=== PATIENT | male | born 1945 | race Caucasian/White ===

== ENCOUNTER 2022-10-10 09:26 | Day surgery (SDC) | payer MEDICARE, OTHER ==
[~2022-10-10] VITALS: Ht 180.3 cm; Wt 81.8 kg
[2022-10-10 09:53] VITALS: BP 174/71
[2022-10-10] MEDS ORDERED: ASPI81TA52 PO (09:54)
[2022-10-10] MEDS ORDERED: ATEN25TA PO (09:54)
[2022-10-10] MEDS ORDERED: ROSU10TA28 PO (09:54)
[2022-10-10] MEDS ORDERED: DILT-35 PO (09:54)
[2022-10-10] MEDS ORDERED: LIDOcaine 1%/PF 5ML 10 MG/ML VIAL SQ ONE (11:40)
--- NOTE | 2022-10-10 13:00 | NUR ---
Dr. Mejia and Angio RN at bedside performing Thyroid biopsy.
[2022-10-10] MEDS ORDERED: LIDOcaine 1%/PF 5ML 10 MG/ML VIAL IJ ONE (15:10)
== END 2022-10-10 13:45 | disposition home or self-care (01) ==
LOC: SSTAY O 09:26
DX: E04.1 Nontoxic single thyroid nodule (principal); I10 Essential (primary) hypertension; E78.5 Hyperlipidemia, unspecified; Z79.899 Other long term (current) drug therapy; Z79.82 Long term (current) use of aspirin
CPT/HCPCS: 10005

== ENCOUNTER 2025-01-16 07:52 | Outpatient (CLI) | payer MEDICARE, OTHER ==
[~2025-01-16 07:52] MED LIST: ASPI81TA52 PO; ATEN25TA PO; DILT-35 PO; ROSU10TA72 PO
[2025-01-16] MEDS ORDERED: iohexol 300mg/ml 100ml inj. ONE (07:54)
[2025-01-16 09:30] LABS: MEAN PLATELET VOLUME 9.1 FL (7.4-10.4); RED CELL DISTRIBUTION WIDTH 14.1 % (11.5-14.5)
[2025-01-16 09:58] LABS: CHOL/HDL RATIO 2.1 (0.00-4.99); CREATININE 0.97 MG/DL (0.60-1.10); LDL CHOLESTEROL 38 MG/DL (50-100); TOTAL CARBON DIOXIDE 31.0 MMOL/L (24-32); eGFR 75 ML/MIN
--- NOTE | 2025-01-16 11:09 | RADIOLOGY REPORT ---
CLINICAL HISTORY: UNSPECIFIED ABDOMINAL PAIN TECHNIQUE: CT of the abdomen and pelvis was performed with IV contrast. 100ML of omnipaque 350 was ad ministered intravenously. This exam was performed according to our departmental dose optimization pro gram. Up-to-date CT equipment and radiation dose reduction techniques are utilized as appropriate. CTDI 10.9 DLP 529.1 COMPARISON: None FINDINGS: Abdomen/Pelvis: The spleen, pancreas, adrenal glands, and bladder are unremarkable. The prostate gland is mildly enla rged in size, measuring 4.8 cm diameter. There are bilateral renal and right hepatic dome cysts. The gallbladder is absent. The abdominal aorta is normal in course and caliber. There are moderate aortic atherosclerotic change s. There is no free intraperitoneal air or fluid. There is no enlarged abdominal or pelvic lymph node. There is no bowel wall thickening or dilatation. The appendix is normal. Other: The imaged lower thorax is unremarkable. No acute osseous abnormality is evident. IMPRESSION: No acute CT abnormality in the abdomen or pelvis. Mild prostatomegaly. Coast cystectomy.
[2025-01-17 11:17] LABS: TESTOSTERONE, SERUM 451 ng/dL (264-916)
[2025-01-20 11:17] LABS: TESTOSTERONE, FREE, DIRECT 6.7 pg/mL (6.6-18.1)
== END 2025-01-16 23:59 | disposition home or self-care (01) ==
LOC: RAD 07:52
PROVIDERS: ATTEND Nurse Practitioner
DX: N40.0 Benign prostatic hyperplasia without lower urinary tract symptoms (principal); N28.1 Cyst of kidney, acquired; K76.89 Other specified diseases of liver; I70.0 Atherosclerosis of aorta; R10.9 Unspecified abdominal pain; I10 Essential (primary) hypertension; E78.2 Mixed hyperlipidemia; Z90.49 Acquired absence of other specified parts of digestive tract
CPT/HCPCS: 36415; 74177; 80053; 80061; 82150; 83036; 83690; 84402; 84403; 84439; 84443; 84550; 85025; Q9967

== ENCOUNTER 2025-02-26 07:15 | Day surgery (SDC) | payer MEDICARE, OTHER ==
[2025-02-19 11:35] LABS: MEAN PLATELET VOLUME 8.7 FL (7.4-10.4); PRE OP HEMATOCRIT 46.7 % (42.0-52.0); PRE OP HEMOGLOBIN 15.7 g/dL (14.0-17.9); PRE OP PLATELET COUNT 136 X10'3 (140-440); PRE OP WHITE BLOOD COUNT 4.7 10'3 (4.8-10.8); RED CELL DISTRIBUTION WIDTH 14.2 % (11.5-14.5)
[2025-02-19 11:52] LABS: CREATININE 0.97 MG/DL (0.60-1.10); PRE OP ALT 21 U/L (30-65); PRE OP ANION GAP 5 (8-16); PRE OP AST 16 U/L (10-37); PRE OP BILIRUB, TOTAL 0.6 MG/DL (0.0-1.0); PRE OP GLUCOSE 107 MG/DL (70-104); PRE OP POTASSIUM 4.3 MMOL/L (3.4-5.1); PRE OP SODIUM 145 MMOL/L (135-145); TOTAL CARBON DIOXIDE 32.0 MMOL/L (24-32); eGFR 75 ML/MIN
[~2025-02-26] VITALS: Ht 177.8 cm; Wt 73.2 kg
[2025-02-26] VITALS (20 sets, daily range): BP systolic 81–141; BP diastolic 38–72; PULSE 50–63; RESP 10–16; TEMP 97.7; O2SAT 92–98
[2025-02-26] MEDS: ceFAZolin 2gm/dext,iso 50mL 50 ML IV ONE (05:30)
[~2025-02-26 07:15] MED LIST changes: +DOCUMENT DATE & TIME OF BETA-BLOCKER PO ONE; +EVOL140P3 SQ; -ROSU10TA72 PO
--- NOTE | 2025-02-26 07:54 | ELECTROCARDIOGRAPH REPORT ---
[facility] Test Date: 2025-02-26 Test Time: 07:52:51 Pat Name: JEMAL ROE Department: 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
[2025-02-26] MEDS: ringers solution, lacted 1,000 ML IV SCH (08:16)
[2025-02-26] MEDS ORDERED: labetalol 20mg/4ml (5mg/ml) syringe IV PRN (08:35)
[2025-02-26] MEDS ORDERED: enalaprilat 1.25mg/ml 2ml vial IV PRN (08:35)
[2025-02-26] MEDS ORDERED: ondansetron/PF 4mg/2ml inj IV PRN (08:35)
[2025-02-26] MEDS ORDERED: HYDROmorphone/PF 0.2 MG/ML SYRINGE IV PRN ×2 (08:35)
[2025-02-26] MEDS ORDERED: morphine 4 MG/ML inj SYRINge IV PRN (08:35)
[2025-02-26] MEDS ORDERED: ringers solution, lacted 1,000 ML IV SCH (08:35)
[2025-02-26] MEDS ORDERED: fentaNYL/PF 50MCG/1 ML 2ML syringe IV PRN ×2 (08:35)
[2025-02-26] MEDS ORDERED: fentaNYL/PF 50MCG/1 ML 2ML syringe ONE (09:01)
[2025-02-26] MEDS ORDERED: midazolam 1 mg/ML 2ml injection ONE (09:01)
[2025-02-26] MEDS ORDERED: LIDOcaine 1%/PF 5ML 10 MG/ML VIAL ONE (09:02)
[2025-02-26] MEDS ORDERED: propofol inj 20 ML IV ONE (09:02)
[2025-02-26] MEDS ORDERED: acetaminophen 1,000mg/100ml IV 100 ML IV ONE (09:41)
[2025-02-26] MEDS ORDERED: BUPIVAcaine 2.5mg/ml inj 50ml vial (contains preservative) ONE (09:42)
[2025-02-26] MEDS ORDERED: LIDOcaine 1% 30ml preserv. free vial ONE (09:42)
[2025-02-26] MEDS ORDERED: rocuronium 10mg/ml inj IV ONE (09:44)
[2025-02-26] MEDS: BUPIVAcaine/PF 2.5 mg/ml (0.25%) 30ml vial IJ ONE (09:48)
[2025-02-26] MEDS: LIDOcaine 1% 30ml preserv. free vial IJ ONE (09:48)
[2025-02-26] MEDS ORDERED: dexamethasone sod phosphate 4mg/ml inj. ONE (09:48)
[2025-02-26] MEDS ORDERED: ondansetron/PF 4mg/2ml inj ONE (09:48)
[2025-02-26] MEDS ORDERED: morphine 4 MG/ML inj SYRINge ONE (10:32)
[2025-02-26] MEDS ORDERED: HYDROcodone/acetaminophen 5mg/325mg tablet PO PRN (10:55)
--- NOTE | 2025-02-26 11:02 | OPERATIVE REPORT ---
Operative Report Providers to CC: BRENT PRICE MD ~ Date of Procedure: Feb 26, 2025 Pre-Operative Diagnosis: Bilateral inguinal hernia Post-Operative Diagnosis SAME as PRE-Op Procedure Performed Robotic assisted, laparoscopic bilateral inguinal hernia repair with mesh Surgeon: Brent Price MD FACS [employer] Assistant None Anesthesiologist: Jaylen Vegas Type of Anesthesia: General Findings: Bilateral indirect inguinal hernias: Right side> left side Complications None Prosthetics\Implants used: Bilateral large Dextile mesh Estimated Blood Loss: Minimal Specimen Removed: None Description of Procedure: Patient was brought to the operating room and identified by the nursing staff and the attending physician. Patient was placed supine and general anesthesia was induced. The patient's abdomen was prepped and draped in the standard sterile fashion. Preoperative antibiotics were given. Supraumbilical, midline incision was made to accommodate a 12 mm Santamaria port. Santamaria technique was used to gain access into the abdomen and the port was anchored to the fascia with 0 Vicryl suture. Abdomen was insufflated without incident. Laparoscope was inserted and the pelvis examined. Patient was placed in Trendelenburg position. Secondary, 8.5 mm robotic trochars were then placed in the right lateral left lateral upper abdomen just above the umbilical line. These were placed under laparoscopic guidance. Local anesthetic was infiltrated prior to their insertion. The da Boubacar robotic arm was docked to the patient. Instruments were guided intra-abdominally under laparoscopic visualization. Peritoneal rent was created starting at the left anterior superior iliac spine and carried across the anterior abdominal wall to the contralateral anterior superior iliac spine. The peritoneal flap was created and carried down to the symphysis pubis. Dissection was carried out bilaterally. On the left, there was a moderate-sized indirect inguinal hernia and on the right there was a large sized indirect inguinal hernia. These were both completely reduced out of the inguinal canals. Peritoneum was dissected away from the cord structures and out laterally to accommodate 2 separate pieces of large Dextile mesh. Bilateral critical views of the myopectineal orifice were obtained. Mesh and suture was passed into the abdomen. Bilateral mesh was placed covering potential obturator, femoral, direct, and indirect hernia spaces. Mesh was anchored at Herberth's ligament, rectus muscle in the midline, and out laterally just anterior to the anterior superior iliac spine. Mesh laid without wrinkles or folds. Peritoneal rent was then reapproximated with running, absorbable 2/0 V-lock suture. [place] were retrieved. Abdomen was allowed to desufflate after instruments removed and da Boubacar robotic arm undocked from the patient. Umbilical port was removed as were the secondary trochars. The fascia at the umbilical port site was closed with 0 Vicryl sutures. Skin was closed at all sites with 4-0 Monocryl sutures in a subcuticular fashion. Sterile dressings were applied. Patient was awakened and taken to the postanesthesia care unit in stable condition. Counts repoted as correct: Yes BRENT PRICE MD Feb 26, 2025 11:02
== END 2025-02-26 15:03 | disposition home or self-care (01) ==
LOC: PAS 07:15
PROVIDERS: ATTEND Surgery
DX: K40.20 Bilateral inguinal hernia, without obstruction or gangrene, not specified as recurrent (principal); R94.31 Abnormal electrocardiogram [ECG] [EKG]; I45.10 Unspecified right bundle-branch block; I10 Essential (primary) hypertension; I25.10 Atherosclerotic heart disease of native coronary artery without angina pectoris; E78.5 Hyperlipidemia, unspecified; I25.2 Old myocardial infarction; Z87.891 Personal history of nicotine dependence; Z79.82 Long term (current) use of aspirin; Z79.899 Other long term (current) drug therapy; Z90.49 Acquired absence of other specified parts of digestive tract; Z98.41 Cataract extraction status, right eye; Z98.42 Cataract extraction status, left eye; Z98.890 Other specified postprocedural states; Z82.49 Family history of ischemic heart disease and other diseases of the circulatory system
CPT/HCPCS: 36415; 49650; 80053; 82948; 85025; 93005; A4215; A4314; A4618; C1781; J0131; J1100; J2003; J2250; J2270; J2405; J2704; J3010; J3490; J7030; J7120; Z7506; Z7508; Z7512; Z7610